=== PATIENT | female | born 1985 | race Caucasian/White ===

== ENCOUNTER 2023-11-25 08:08 | Outpatient (CLI) | payer BC | END 2023-11-25 08:09 | disposition home or self-care (01) | LOC: BICRAD 08:08 | PROVIDERS: ATTEND Family Medicine Sports Medicine | DX: R05.3 Chronic cough (principal) | CPT/HCPCS: 71046 ==

== ENCOUNTER 2023-12-03 14:21 | Outpatient (CLI) | payer BC ==
[~2023-12-03 14:21] MED LIST: Iopamidol 370 76% 100 ML VIAL ONE
== END 2023-12-03 14:22 | disposition home or self-care (01) ==
LOC: BICCT 14:21
PROVIDERS: ATTEND Family Medicine Sports Medicine
DX: R05.3 Chronic cough (principal)
CPT/HCPCS: 71260

== ENCOUNTER 2023-12-17 11:00 | Outpatient (CLI) | payer BC | END 2023-12-17 11:01 | disposition home or self-care (01) | LOC: BICMAMMO 11:00 | PROVIDERS: ATTEND Family Medicine Sports Medicine | DX: Z12.31 Encounter for screening mammogram for malignant neoplasm of breast (principal) | CPT/HCPCS: 77063; 77067 ==